=== PATIENT | female | born 1985 | race Asian ===

== ENCOUNTER 2020-12-31 17:54 | Observation (INO) ==
--- NOTE | 2020-12-31 19:36 | Emergency Department Note ---
Impression & Plan Abdominal pain, Nausea ED Provider Note NAME: OWEN WESTBROOK AGE: 35 SEX: F : 1985 ARRIVES VIA: Walk-In INFORMANT: Patient, ED PROVIDER(S): Gurwinder Ledesma MD Chief Complaint: Abdominal pain HPI: Patient does present with lower abdominal pain. She describes it as achy and diffuse. She has not taken anything for it at home. Patient denies any fevers or chills. Patient is currently on her menstrual period. Patient denies any recent travel. She has had associated nausea but without vomiting. The pat ient has had recent bowel movements. No blood in the urine or stool. The patient denies any dysuria. Patient initially thought that her discomfort was secondary to something she may have eaten and was seen at [facility]. Patient states that pain is not much improved. ROS: See HPI for pertinent positives and negatives. A total of 10 systems were reviewed and otherwise negative. Past medical history: See below Surgical history: See below Social history: See below Physical Exam: GENERAL: Mildly uncomfortable in appearance, wearing glasses and a mask NAD, non-toxic. EYE EXAM: Normal conjunctiva. PERRL, no anisocoria and EOM's grossly intact w/o pain. NECK: Supple, no nuchal rigidity, no adenopathy, non-tender. No signs of meningismus. LUNGS: Clear to auscultation. Normal chest wall mechanics. HEART: NSR, no MRG. ABDOMEN: Abdomen soft, diffuse lower abdominal discomfort, negative obturators and psoas, normo-active bowel sounds, no masses, no rebound or guarding. BACK: No CVA TTP. SKIN: No rashes and no bruising. UPPER EXTREMITIES: Upper extremities are grossly normal. LOWER EXTREMITIES: Grossly normal, no edema. NEURO EXAM: A&O x3, cranial nerves II-XII grossly intact, normal speech, moves all 4 extremities on command w/o issue. Differential diagnoses: Appendicitis, ovarian cyst, ovarian torsion, ectopic , TOA, PID, infections, diverticulitis, UTI, obstruction, mesenteric ischemia, aortic pathology, inflammatory bowel disease, renal colic, PUD, pancreatitis, biliary pathology, hernia, volvulus, constipation, as well as other pathologies. Course: Patient was seen and evaluated the bedside. Full history physical exam was performed. EKG: None Imaging Studies: See below Cardiac monitoring: An order was placed for continuous cardiac monitoring. The monitor shows a rate of 82 with sinus rhythm. MDM: Patient was seen due to concern for lower abdominal discomfort currently on menstrual period. The patient did have blood work completed and was treated s ymptomatically. Upon reassessment the patient did have improvement with her pain but still had some mild nausea. The patient blood work did show a white count of 15 in light of the patient's recent menstrual period believe a CT is warranted to rule out the possibility alternative intra-abdominal pathology. The patient CT did show the possibility of appendicitis but it was recommended for repeat CAT scan to be completed with both IV and oral contrast. Patient was ordered additional medications. I did convey this to the patient and she understood. I did signout the patient to Dr. Shetty pending the repeat CAT scan. Past Med/Surg History Medical History (Updated 01/03/21 @ 09:26 by Gurwinder Ledesma MD) No pertinent past medical history Surgical History (Updated 01/03/21 @ 09:26 by Gurwinder Ledesma MD) No pertinent past surgical history Social History Smoking Status: Never smoker Second Hand Exposure: No; Hx Alcohol Use: No Hx Substance Use: No Preferred Language: German Communication Ability: Effective Beliefs That Will Affect Care: None Current Living Situation: Alone Feels Safe at Home: Yes Assistive Devices: Glasses Allergies Allergies Allergy/AdvReac Type Severity Reaction Status Date / Time latex Allergy Rash Verified 01/01/21 05:34 naproxen Allergy MOUTH Verified 12/31/20 21:34 EDEMA, DIFFICULTY BREATHING nickel Allergy Rash Verified 01/01/21 05:34 Home Meds Home Medications Medication Instructions Recorded Confirmed acetaminophen [Tylenol Extra 1,000 mg PO Q6H PRN 12/31/20 12/31/20 Strength] bupropion HCl 150 mg PO DAILY 12/31/20 12/31/20 ibuprofen 600 mg PO Q8H PRN 12/31/20 12/31/20 sertraline 100 mg PO DAILY 12/31/20 12/31/20 Previous Rx's Medication Instructions Recorded oxycodone 5 - 10 mg PO .[id number] PRN #10 tab 01/01/21 Results & Data (ED) Vital Signs Vital Signs - 24 hr 12/31/20 17:58 Temperature 36.5 C Temperature Source Temporal Artery Scan Pulse Rate 77 Respiratory Rate 18 Blood Pressure 97/74 L Blood Pressure Mean 81 Pulse Oximetry 97 Sepsis Recent Fever Within 48 Hours No Sepsis New/Unexplained Change in Mental Status No Sepsis Action Taken by Nursing No Action Required Home Medications Current Medication List: was personally reviewed by me Laboratory Data Attestation: I reviewed the patient's lab results. Result diagrams: 12/31/20 19:36 12/31/20 19:36 Lab Results 12/31/20 12/31/20 12/31/20 Range/Units 19:36 19:36 19:36 WBC 15.47 H (4.8-10.8) K/uL RBC 4.18 L (4.2-5.4) M/uL Hgb 11.3 L (12.0-16.0) g/dL Hct 34.1 L (37-47) % MCV 81.6 (80-100) fL MCH 27.0 (25-34) pg MCHC 33.1 (32-36) g/dL RDW Std Deviation 49.5 H (36.4-46.3) fL RDW Coeff of Jud 16.3 H (11.5-14.5) % Plt Count 274 (130-400) K/uL MPV 10.8 H (7.4-10.4) fL Immature Gran % (Auto) 0.2 % Neut % (Auto) 86.7 % Lymph % (Auto) 8.2 % Yancey % (Auto) 3.8 % Eos % (Auto) 1.0 % Baso % (Auto) 0.1 % Neut # (Auto) 13.41 H (1.4-6.5) K/uL Lymph # (Auto) 1.27 (1.2-3.4) K/uL [place]y # (Auto) 0.59 (0.11-0.59) K/uL Eos # (Auto) 0.15 (0-0.5) K/uL Baso # (Auto) 0.02 (0-0.2) K/uL Immature Gran # (Auto) 0.03 H (0.00-0.02) K/uL PT 9.7 (9.0-12.0) Seconds INR 1.0 (0.9-1.1) Sodium 141 (136-145) mmol/L Potassium 3.5 (3.5-5.1) mmol/L Chloride 110 H (98-107) mmol/L Carbon Dioxide 27 (21-32) mmol/L Anion Gap 4.0 (3-11) BUN 12 (7-18) mg/dl Creatinine 0.64 (0.6-1.2) mg/dl Est Cr Clr Drug Dosing Not Reportable Est GFR ( Amer) 135.9 Est GFR (Non-Af Amer) 117.2 BUN/Creatinine Ratio 18.9 (10-20) Glucose 124 H (70-99) mg/dl Calcium 8.7 (8.5-10.1) mg/dl Total Bilirubin 0.3 (0.2-1) mg/dl AST 11 L (15-37) U/L ALT 35 (12-78) U/L Alkaline Phosphatase 56 (45-117) U/L Total Protein 7.2 (6.4-8.2) gm/dl Albumin 3.8 (3.4-5.0) gm/dl Globulin 3.4 (2.5-4.0) gm/dl Albumin/Globulin Ratio 1.1 (0.9-2) Lipase 76 (73-393) U/L Urine Color Urine Appearance (Clear) Urine pH (4.5-7.5) Ur Specific [place] (1.000-1.030) Urine Protein (Negative) Urine Glucose (UA) (Negative) Urine Ketones (Negative) Urine Blood (Negative) Urine Nitrite (Negative) Urine Bilirubin (Negative) Urine Urobilinogen (Negative) Ur Leukocyte Esterase (Negative) Urine WBC (Auto) (0-5) /hpf Urine RBC (Auto) (0-4) /hpf U Hyaline Cast (Auto) (0-5) /lpf U Epithel Cells (Auto) (0-5) /lpf Urine Bacteria (Auto) (Negative) Urine Test (Negative) COVID-19 Eval Order SARS-CoV-2 (PCR) (Negative) Influenza Type A (PCR) (Neg) Influenza Type B (PCR) (Neg) RSV (RT-PCR) (Neg) 12/31/20 12/31/20 01/01/21 Range/Units Unknown Unknown 01:00 WBC (4.8-10.8) K/uL RBC (4.2-5.4) M/uL Hgb (12.0-16.0) g/dL Hct (37-47) % MCV (80-100) fL MCH (25-34) pg MCHC (32-36) g/dL RDW Std Deviation (36.4-46.3) fL RDW Coeff of Jud (11.5-14.5) % Plt Count (130-400) K/uL MPV (7.4-10.4) fL Immature Gran % (Auto) % Neut % (Auto) % Lymph % (Auto) % Yancey % (Auto) % Eos % (Auto) % Baso % (Auto) % Neut # (Auto) (1.4-6.5) K/uL Lymph # (Auto) (1.2-3.4) K/uL [place] # (Auto) (0.11-0.59) K/uL Eos # (Auto) (0-0.5) K/uL Baso # (Auto) (0-0.2) K/uL Immature Gran # (Auto) (0.00-0.02) K/uL PT (9.0-12.0) Seconds INR (0.9-1.1) Sodium (136-145) mmol/L Potassium (3.5-5.1) mmol/L Chloride (98-107) mmol/L Carbon Dioxide (21-32) mmol/L Anion Gap (3-11) BUN (7-18) mg/dl Creatinine (0.6-1.2) mg/dl Est Cr Clr Drug Dosing Est GFR ( Amer) Est GFR (Non-Af Amer) BUN/Creatinine Ratio (10-20) Glucose (70-99) mg/dl Calcium (8.5-10.1) mg/dl Total Bilirubin (0.2-1) mg/dl AST (15-37) U/L ALT (12-78) U/L Alkaline Phosphatase (45-117) U/L Total Protein (6.4-8.2) gm/dl Albumin (3.4-5.0) gm/dl Globulin (2.5-4.0) gm/dl Albumin/Globulin Ratio (0.9-2) Lipase (73-393) U/L Urine Color Red Urine Appearance Cloudy A (Clear) Urine pH 5.5 (4.5-7.5) Ur Specific [place] 1.024 (1.000-1.030) Urine Protein 1+ H (Negative) Urine Glucose (UA) Negative (Negative) Urine Ketones Negative (Negative) Urine Blood 3+ H (Negative) Urine Nitrite Negative (Negative) Urine Bilirubin Negative (Negative) Urine Urobilinogen Negative (Negative) Ur Leukocyte Esterase 1+ H (Negative) Urine WBC (Auto) 5-10 H (0-5) /hpf Urine RBC (Auto) >30 H (0-4) /hpf U Hyaline Cast (Auto) 0 (0-5) /lpf U Epithel Cells (Auto) 10-20 H (0-5) /lpf Urine Bacteria (Auto) Negative (Negative) Urine Test Negative (Negative) COVID-[address] Eval [address] CovFluRsv at [facility] SARS-CoV-2 (PCR) (Negative) Influenza Type A (PCR) (Neg) Influenza Type B (PCR) (Neg) RSV (RT-PCR) (Neg) 01/01/21 Range/Units 01:00 WBC (4.8-10.8) K/uL RBC (4.2-5.4) M/uL Hgb (12.0-16.0) g/dL Hct (37-47) % MCV (80-100) fL MCH (25-34) pg MCHC (32-36) g/dL RDW Std Deviation (36.4-46.3) fL RDW Coeff of Jud (11.5-14.5) % Plt Count (130-400) K/uL MPV (7.4-10.4) fL Immature Gran % (Auto) % Neut % (Auto) % Lymph % (Auto) % [place] % (Auto) % Eos % (Auto) % Baso % (Auto) % Neut # (Auto) (1.4-6.5) K/uL Lymph # (Auto) (1.2-3.4) K/uL [place] # (Auto) (0.11-0.59) K/uL Eos # (Auto) (0-0.5) K/uL Baso # (Auto) (0-0.2) K/uL Immature Gran # (Auto) (0.00-0.02) K/uL PT (9.0-12.0) Seconds INR (0.9-1.1) Sodium (136-145) mmol/L Potassium (3.5-5.1) mmol/L Chloride (98-107) mmol/L Carbon Dioxide (21-32) mmol/L Anion Gap (3-11) BUN (7-18) mg/dl Creatinine (0.6-1.2) mg/dl Est Cr Clr Drug Dosing Est GFR ( Amer) Est GFR (Non-Af Amer) BUN/Creatinine Ratio (10-20) Glucose (70-99) mg/dl Calcium (8.5-10.1) mg/dl Total Bilirubin (0.2-1) mg/dl AST (15-37) U/L ALT (12-78) U/L Alkaline Phosphatase (45-117) U/L Total Protein (6.4-8.2) gm/dl Albumin (3.4-5.0) gm/dl Globulin (2.5-4.0) gm/dl Albumin/Globulin Ratio (0.9-2) Lipase (73-393) U/L Urine Color Urine Appearance (Clear) Urine pH (4.5-7.5) Ur Specific [place] (1.000-1.030) Urine Protein (Negative) Urine Glucose (UA) (Negative) Urine Ketones (Negative) Urine Blood (Negative) Urine Nitrite (Negative) Urine Bilirubin (Negative) Urine Urobilinogen (Negative) Ur Leukocyte Esterase (Negative) Urine WBC (Auto) (0-5) /hpf Urine RBC (Auto) (0-4) /hpf U Hyaline Cast (Auto) (0-5) /lpf U Epithel Cells (Auto) (0-5) /lpf Urine Bacteria (Auto) (Negative) Urine Test (Negative) COVID-19 Eval Order SARS-CoV-2 (PCR) NEGATIVE (Negative) Influenza Type A (PCR) Negative (Neg) Influenza Type B (PCR) Negative (Neg) RSV (RT-PCR) Negative (Neg) Administered Medications Discontinued Medications Bupivacaine HCl/Epinephrine Bitart (Bupivacaine/Epinephrine 0.5% Mpf 1:200,000 30 Ml Vial) Confirm Administered Dose 30 ml .ROUTE .[employer]-MED ONE Stop: 01/01/21 02:08 Last Admin: 01/01/21 03:28 Dose: 30 ml Documented by: [id number] Bupropion HCl (Bupropion Xl 150 Mg Tabcr) 150 mg PO DAILY SANDY Stop: 01/31/21 08:59 Last Admin: 01/01/21 09:18 Dose: 150 mg Documented by: [id number] Sodium Chloride (Nss 1000ml) 1,000 mls @ 999 mls/hr IV .Q1H1M STA Stop: 12/31/20 20:48 Last Infusion: 12/31/20 22:15 Dose: 0 mls/hr Documented by: [id number] Admin: 12/31/20 20:13 Dose: 999 mls/hr Documented by: [id number] Sodium Chloride (Nss 1000ml) 1,000 mls @ 999 mls/hr IV .Q1H1M ONE Stop: 12/31/20 23:29 Last Infusion: 12/31/20 23:33 Dose: 0 mls/hr Documented by: [id number] Admin: 12/31/20 22:32 Dose: 999 mls/hr Documented by: [id number] Cefoxitin Sodium (Mefoxin) 2,000 mg in 60 mls @ 100 mls/hr IV NOW STA Stop: 01/01/21 01:44 Last Infusion: 01/01/21 05:14 Dose: 0 mls/hr Documented by: [id number] Admin: 01/01/21 01:42 Dose: 100 mls/hr Documented by: [id number] Lactated Ringer's (Lr) 1,000 mls @ 75 mls/hr IV .[id number] SANDY Stop: 01/31/21 01:14 Last Infusion: 01/01/21 14:33 Dose: 0 mls/hr Documented by: [id number] Infusion: 01/01/21 08:01 Dose: 75 mls/hr Documented by: [id number] Infusion: 01/01/21 07:43 Dose: 0 mls/hr Documented by: [id number] Admin: 01/01/21 01:43 Dose: 75 mls/hr Documented by: [id number] Acetaminophen (Ofirmev) 1,000 mg in 100 mls @ 400 mls/hr IV Q8H SANDY Stop: 01/04/21 07:59 Last Infusion: 01/01/21 16:25 Dose: 0 mls/hr Documented by: [id number] Admin: 01/01/21 16:01 Dose: 400 mls/hr Documented by: [id number] Infusion: 01/01/21 08:01 Dose: 0 mls/hr Documented by: [id number] Admin: 01/01/21 07:42 Dose: 400 mls/hr Documented by: [id number] Ioversol (Ioversol 100ml) 86 ml IV ONCE ONE Stop: 12/31/20 20:23 Last Admin: 12/31/20 20:23 Dose: 86 ml Documented by: [id number] Morphine Sulfate (Morphine Sulfate 4 Mg/Ml 1 Ml Carp\Vial) 4 mg IV NOW STA Stop: 12/31/20 19:49 Last Admin: 12/31/20 20:13 Dose: 4 mg Documented by: [id number] Morphine Sulfate (Morphine Sulfate 4 Mg/Ml 1 Ml Carp\Vial) 4 mg IV ONE PRN PRN Reason: Pain Stop: 01/14/21 22:28 Last Admin: 12/31/20 23:04 Dose: 4 mg Documented by: [id number] Ondansetron HCl (Ondansetron Inj 2 Mg/Ml 2 Ml Vial) 4 mg IV NOW STA Stop: 12/31/20 19:49 Last Admin: 12/31/20 20:13 Dose: 4 mg Documented by: [id number] Ondansetron HCl (Ondansetron Inj 2 Mg/Ml 2 Ml Vial) 4 mg IV NOW STA Stop: 12/31/20 21:10 Last Admin: 12/31/20 21:24 Dose: 4 mg Documented by: [id number] Oxycodone HCl (Oxycodone Hcl Soln 5 Mg/5 Ml Udc) 5 mg PO Q6H PRN PRN Reason: Pain Stop: 01/15/21 05:45 Last Admin: 01/01/21 14:51 Dose: 5 mg Documented by: [id number] Sertraline HCl (Sertraline Hcl 100 Mg Tablet) 100 mg PO DAILY SANDY Stop: 01/31/21 08:59 Last Admin: 01/01/21 09:18 Dose: 100 mg Documented by: [id number] Sterile Water (Water, Sterile For Inj 10 Ml Vial) Confirm Administered Dose 10 ml .ROUTE .STK-MED ONE Stop: 01/01/21 01:40 Last Admin: 01/01/21 01:43 Dose: 10 ml Documented by: [id number] Discharge Plan Visit Data Chief Complaint: Abdominal Pain Stated Complaint: ABDOMINAL PAIN ED Provider: Gurwinder Ledesma Discharge Problem: Abdominal pain, Nausea Patient Disposition: Admitted As Inpatient Discharge Instructions Interventions: ED Discharge Assessment Last Done: 01/01/21 02:01 Discharge Problem: Abdominal pain Qualifiers: Abdominal location: lower abdomen, unspecified Qualified Code(s): R10.30 - Lower abdominal pain, unspecified
[2020-12-31] MEDS ORDERED: SODIUM CHLORIDE 0.9% 1000ML 1,000 ML IV STA (19:48)
[2020-12-31] MEDS ORDERED: ONDANSETRON INJ 2 MG/ML 2 ML VIAL IV STA ×2 (19:48→21:09)
[2020-12-31] MEDS ORDERED: MoRPHine SULFATE 4 MG/ML 1 ML CARP\\VIAL IV STA (19:48)
[2020-12-31 19:58] LABS: Basophils # (auto) 0.02 K/uL (0-0.2); Basophils % (auto) 0.1 %; Eosinophils # (auto) 0.15 K/uL (0-0.5); Hematocrit (blood only) 34.1 % (37-47); Hemoglobin 11.3 g/dL (12.0-16.0); Immature Granulocytes # (auto) 0.03 K/uL (0.00-0.02); Immature Granulocytes % (auto) 0.2 %; Lymphocytes # (auto) 1.27 K/uL (1.2-3.4); Lymphocytes % (auto) 8.2 %; Mean Corpuscular Hgb Conc 33.1 g/dL (32-36); Mean Corpuscular Volume 81.6 fL (80-100); Mean Platelet Volume 10.8 fL (7.4-10.4); Monocytes # (auto) 0.59 K/uL (0.11-0.59); Monocytes % (auto) 3.8 %; Neutrophils # (auto) 13.41 K/uL (1.4-6.5); Neutrophils % (auto) 86.7 %; Platelet Count 274 K/uL (130-400); RDW Coefficient of Variation 16.3 % (11.5-14.5); RDW Standard Deviation 49.5 fL (36.4-46.3); Red Blood Count 4.18 M/uL (4.2-5.4); White Blood Count 15.47 K/uL (4.8-10.8)
[2020-12-31 20:08] LABS: Alanine Aminotransferase 35 U/L (12-78); Albumin Level 3.8 gm/dl (3.4-5.0); Aspartate Aminotransferase 11 U/L (15-37); BUN Creatinine Ratio 18.9 (10-20); Blood Urea Nitrogen 12 mg/dl (7-18); Calcium 8.7 mg/dl (8.5-10.1); Carbon Dioxide 27 mmol/L (21-32); Chloride 110 mmol/L (98-107); Est GFR (African American) 135.9; Est GFR (Non-African American) 117.2; Glucose 124 mg/dl (70-99); Lipase 76 U/L (73-393); Potassium 3.5 mmol/L (3.5-5.1); Sodium 141 mmol/L (136-145)
[2020-12-31 20:11] LABS: Albumin Globulin Ratio 1.1 (0.9-2); Alkaline Phosphatase 56 U/L (45-117); Bilirubin,Total 0.3 mg/dl (0.2-1); Globulin 3.4 gm/dl (2.5-4.0); Prothrombin Time 9.7 Seconds (9.0-12.0); Total Protein 7.2 gm/dl (6.4-8.2)
[2020-12-31] MEDS ORDERED: OPTIRAY 320 100ml IV ONE (20:22)
[2020-12-31 20:32] LABS: Appearance Urine Cloudy (Clear); Bacteria Urine Automated Negative (Negative); Bilirubin Urine Negative (Negative); Blood Urine 3+ (Negative); Cast Urine Automated 0 /lpf (0-5); Color Urine Red; Glucose Urine UA Negative (Negative); Ketones Urine Negative (Negative); Leukocyte Esterase Urine 1+ (Negative); Nitrite Urine Negative (Negative); Protein Urine 1+ (Negative); RBC Urine Automated >30 /hpf (0-4); Specific Gravity Urine 1.024 (1.000-1.030); Urobilinogen Urine Negative (Negative); pH Urine 5.5 (4.5-7.5)
--- NOTE | 2020-12-31 20:40 | CT Scan Report ---
ABDOMEN AND PELVIS CT WITH IV CONTRAST CT DOSE: 677.70 mGy.cm HISTORY: Diffuse abdominal pain. Lower abdominal pain. TECHNIQUE: Multiaxial CT images of the abdomen and pelvis were performed following the use of intrave nous contrast. A dose lowering technique was utilized adhering to the principles of ALARA. COMPARISON STUDY: None. FINDINGS: The lung bases are clear. No pneumoperitoneum. No pneumatosis. No fractures within the visu alized osseous structures. Hepatic steatosis. The gallbladder, spleen, adrenal glands, pancreas, and kidneys unremarkable. No retroperitoneal lymphadenopathy. Normal caliber abdominal aorta. The main po rtal vein is patent. The bladder is decompressed but appears unremarkable. The uterus is within hoang l limits. The right ovary is obscured by the small amount of pelvic free fluid. Probable 2.3 cm cyst within the right ovary. No bowel wall thickening or obstruction. The proximal to mid appendix is with in normal limits. However, there is a lobular appearance to the tip of the appendix which may also be partially obscured by the pelvic free fluid. This is best seen on image 328 and measures 9 mm in thi ckness. No definite periappendiceal fat stranding. IMPRESSION: 1. The proximal to mid appendix is within normal limits. However, there is a lobular appearance to th e tip of the appendix which is not well visualized due to the adjacent pelvic free fluid. This measur es up to 9 mm in diameter. No definite periappendiceal fat stranding. Given history of lower abdomina l pain, repeat CT with intravenous and oral contrast is recommended to exclude the possibility of a d eveloping acute appendicitis. 2. Small amount of pelvic free fluid which may be physiologic/gynecologic in origin. The right kidney is slightly enlarged compared to the left and appears to contain a 2.3 cm cyst. Therefore, this may represent a recently ruptured ovarian cyst. 3. Hepatic steatosis. 4. No evidence for bowel obstruction. ACT 112: Negative or not required by law. Electronically signed by: Daniele Robison M.D. 12/31/2020 8:39 PM
[2020-12-31 20:42] LABS: Pregnancy Test, Urine Negative (Negative)
[2020-12-31] MEDS ORDERED: SODIUM CHLORIDE 0.9% 1000ML 1,000 ML IV ONE (22:29)
[2020-12-31] MEDS ORDERED: MoRPHine SULFATE 4 MG/ML 1 ML CARP\\VIAL IV PRN (22:29)
--- NOTE | 2021-01-01 01:02 | Emergency Department Note ---
ED Visit Note Patient was signed out to me awaiting a second CT scan of the abdomen pelvis. I did talk to the radiologist on the phone about the CT scan. He is highly suspicious for acute appendicitis. I did speak with the surgical service. They are going to see the patient for operative evaluation. .
[2021-01-01] MEDS ORDERED: cefOXitin 2,000 MG/60 ML BAG IV STA (01:09)
[2021-01-01] MEDS ORDERED: ONDANSETRON INJ 2 MG/ML 2 ML VIAL IV PRN ×2 (01:09→02:29)
[2021-01-01] MEDS ORDERED: MoRPHine SULFATE 2 MG/ML CARP IV PRN (01:09)
--- NOTE | 2021-01-01 01:09 | History & Physical Report ---
Date of Service January 01, 2021 Assessment & Plan (1) Acute appendicitis: Due to the patient's clinical history, laboratory findings, and imaging we are highly suspicious the patient has acute appendicitis. We will therefore proceed with a laparoscopic possible open appendectomy this evening. We will provide analgesics We will provide antiemetics We will administer antibiotics in the form of cefoxitin We will provide IV fluid for hydration We will keep patient n.p.o. until after surgery Additional recommendations were made based on operative findings as well as her clinical course as unfolds. History of Present Illness Chief Complaint: Abdominal pain Primary Care Provider: [facility] This is a 35-year-old female who notes that she has had several days of generalized abdominal pain. Patient says that she originally thought that this pain was food poisoning and she was seen at [facility] where she received some intravenous fluids and was sent home. Patient notes over the ensuing several days her pain has not gotten much better. She has had associated nausea vomiting and her began pain became quite severe so she presented to the emergency department today. Patient says that the pain was originally in a generalized fashion in her abdomen but has the most intensity now in the right lower quadrant. She denies any fevers, shakes, chills. She does not note any modifying factors or radiation of her pain. In the emergency department the patient did have labs and imaging which I dependently reviewed. She originally had a noncontrast CT scan of her abdomen where the patient was noted to have a mid and proximal appendix within normal limits however appendicitis could not be excluded as the tip was not well visualized. Patient ultimately had a follow-up CT scan of the abdomen with oral contrast and interpreting radiologist was suspicious for acute appendicitis. The patient did have labs including a CBC were white blood cell count was elevated at 15.4. Her hemoglobin hematocrit were 11.3 and 34.1. Platelet count was noted be within normal range. A chemistry profile showed her sodium, potassium, BUN, and creatinine were all within normal range. A urine test was noted be negative and a Covid test is pending. At the time of my interview the patient was resting comfortably in bed in no distress Allergies Allergy/AdvReac Type Severity Reaction Status Date / Time naproxen Allergy MOUTH Verified 12/31/20 21:34 EDEMA, DIFFICULTY BREATHING Home Medications Medication Instructions Recorded Confirmed Type acetaminophen [Tylenol Extra 1,000 mg PO Q6H PRN 12/31/20 12/31/20 History Strength] bupropion HCl 150 mg PO DAILY 12/31/20 12/31/20 History ibuprofen 600 mg PO Q8H PRN 12/31/20 12/31/20 History sertraline 100 mg PO DAILY 12/31/20 12/31/20 History Past Med/Surg History Social History Smoking Status: Never smoker Feels Safe at Home: Yes Review of Systems Constitutional: no fever Eyes: no diplopia Ear, Nose, Mouth, Throat: no ear pain Respiratory: no cough and no dyspnea Cardiovascular: no chest pain Gastrointestinal: + abdominal pain, + nausea and + vomiting Genitourinary: no dysuria Musculoskeletal: no back pain Integumentary: no rash Neurologic: no localized weakness Physical Exam Constitutional: well developed and well nourished; no acute distress Eyes: no conjunctival abnormality Wears glasses ENMT: Ears: no hearing impairment Neck: trachea midline Respiratory: normal respiratory effort, lungs clear to auscultation Cardiovascular: Rate/Rhythm: regular rate and regular rhythm Gastrointestinal (Abdomen): Abdomen is soft and nondistended. Bowel sounds are present. The patient did have pain with palpation most pronounced in the right lower quadrant. Musculoskeletal: No calf tenderness Skin: no rashes, warm and dry Neurologic: moves all extremities Psychiatric: A+Ox3, euthymic affect Results & Data Results & Data ([facility]) Vital Signs (Past 12 Hours) Vital Signs Temp Pulse Pulse Resp BP BP Pulse Ox 12/31/20 23:30 90 18 120/67 97 12/31/20 23:03 87 18 115/68 99 12/31/20 22:00 89 18 130/65 97 12/31/20 21:28 82 18 122/69 99 12/31/20 17:58 36.5 C 77 18 97/74 L 97 Supervising Physician Co-Signing Physician Notes I personally saw and evaluated the patient with Jevon Lopez PA-C and agree with the assessment and plan 35 yo female with acute appendicitis versus ruptured ovarian cyst -Her abdominal pain has an acute on chronic nature to it and exam has point TTP in RLQ -CT shows evidence of inflammation in RLQ -Discussion with radiology favors appendicitis over a SUPERINTENDENT STATIONS etiology -Will proceed with laparoscopic appendectomy, possible open -Consent obtained, risks discussed including bleeding, infection, leak, perforation PG Care Time/CCT Total # of Minutes Spent Total Time Spent with Patient: Total time spent is greater than 50% in coordination of care (as documented) at patient's floor/unit and/or counseling patient: Coding Level of Care Code 00066 OBS Care - Level 3 Diagnoses Acute appendicitis K35.80
[2021-01-01] MEDS ORDERED: LACTATED RINGER'S 1,000 ML IV SCH (01:15)
--- NOTE | 2021-01-01 01:15 | Anesthesiology Consultation ---
Date of Service January 01, 2021 Assessment & Plan (1) Encounter for pre-operative examination: Chart Review Chart Review: Acceptable Risk for Surgery and Patient NOT seen in Pre Admission Testing Consults Requested none History Surgery Operation Date: 01/01/21 02:30 Proposed Procedures p Laparoscopic Appendectomy - Tyler Del Cid DO Height/Weight Weight: 89.1 kg Allergies Allergy/AdvReac Type Severity Reaction Status Date / Time naproxen Allergy MOUTH Verified 12/31/20 21:34 EDEMA, DIFFICULTY BREATHING Medications Home Medications Medication Instructions Recorded Confirmed Last Taken acetaminophen [Tylenol Extra 1,000 mg PO Q6H PRN 12/31/20 12/31/20 12/31/20 17:15 Strength] bupropion HCl 150 mg PO DAILY 12/31/20 12/31/20 Unknown ibuprofen 600 mg PO Q8H PRN 12/31/20 12/31/20 12/31/20 09:00 sertraline 100 mg PO DAILY 12/31/20 12/31/20 Unknown Active Medications Generic Name Dose Route Start Last Admin Trade Name Jesusq PRN Reason Stop Dose Admin Morphine Sulfate 4 mg 12/31/20 22:29 12/31/20 23:04 Morphine Sulfate 4 Mg/Ml 1 Ml Carp\Vial IV 01/14/21 22:28 4 mg ONE PRN Administration Pain Social History Smoking Status: Never smoker Physical Exam Vital Signs Last Vital Signs Temp 36.5 C 12/31/20 17:58 Pulse 90 12/31/20 23:30 Resp 18 12/31/20 23:30 BP 120/67 12/31/20 23:30 Pulse Ox 97 12/31/20 23:30 Testing Laboratory Results 12/31/20 19:36 12/31/20 19:36 PT 9.7 Seconds (9.0-12.0) 12/31/20 19:36 INR 1.0 (0.9-1.1) 12/31/20 19:36 Urine Color Red 12/31/20 Unknown Urine Appearance Cloudy (Clear) A 12/31/20 Unknown Urine pH 5.5 (4.5-7.5) 12/31/20 Unknown Ur Specific [place] 1.024 (1.000-1.030) 12/31/20 Unknown Urine Protein 1+ (Negative) H 12/31/20 Unknown Urine Glucose (UA) Negative (Negative) 12/31/20 Unknown Urine Ketones Negative (Negative) 12/31/20 Unknown Urine Nitrite Negative (Negative) 12/31/20 Unknown Ur Leukocyte Esterase 1+ (Negative) H 12/31/20 Unknown Urine WBC (Auto) 5-10 /hpf (0-5) H 12/31/20 Unknown Urine RBC (Auto) >30 /hpf (0-4) H 12/31/20 Unknown U Hyaline Cast (Auto) 0 /lpf (0-5) 12/31/20 Unknown U Epithel Cells (Auto) 10-20 /lpf (0-5) H 12/31/20 Unknown Urine Bacteria (Auto) Negative (Negative) 12/31/20 Unknown Urine Test Negative (Negative) 12/31/20 Unknown 12/31/20 Unknown Urine Test Negative
[2021-01-01] MEDS ORDERED: MIDAZOLAM HCL 1 MG/ML 2ML VIAL ONE (01:36)
[2021-01-01] MEDS ORDERED: PROPOFOL IV EMULSION 10 MG/ML 20 ML VIAL IV ONE (01:36)
[2021-01-01] MEDS ORDERED: LIDOCAINE HCL 2% 2 ML VIAL/AMP(20MG/ML) INFIL ONE (01:36)
[2021-01-01] MEDS ORDERED: ONDANSETRON INJ 2 MG/ML 2 ML VIAL ONE ×2 (01:36→03:11)
[2021-01-01] MEDS ORDERED: SUCCINYLCHOLINE CHLORIDE 20 MG/ML 10 ML VIAL IV ONE (01:36)
[2021-01-01] MEDS ORDERED: fentaNYL citrate 100 MCG/2 ML VIAL ONE (01:36)
[2021-01-01] MEDS ORDERED: ROCURONIUM BROMIDE 10 MG/ML 5 ML VIAL IV ONE (01:36)
[2021-01-01] MEDS ORDERED: DEXAMETHASONE SOD INJ 4 MG/ML VIAL ONE (01:36)
[2021-01-01] MEDS ORDERED: WATER, STERILE FOR INJ 10 ML VIAL ONE (01:39)
[2021-01-01] MEDS ORDERED: NEOSTIGMINE METHYLSULFATE 5 MG/5 ML SYR ONE (01:42)
[2021-01-01] MEDS ORDERED: GLYCOPYRROLATE 0.2 MG/ML VIAL ONE (01:42)
[2021-01-01 01:52] LABS: Influenza A virus by PCR Negative (Neg); Influenza B virus by PCR Negative (Neg); RSV by PCR Negative (Neg); SARS CoV2 RNA(COVID-19) InHosp NEGATIVE (Negative)
[2021-01-01] MEDS ORDERED: BUPIVACAINE/EPINEPHRINE 0.5% MPF 1:200,000 30 ML VIAL ONE (02:07)
[2021-01-01] MEDS ORDERED: fentaNYL citrate 100 MCG/2 ML VIAL IV PRN (02:29)
[2021-01-01] MEDS ORDERED: ePHEDrine sulfate 50 MG/ML AMP IV PRN (02:29)
[2021-01-01] MEDS ORDERED: PROMETHAZINE HCL 12.5 MG in SODIUM CHLORIDE 0.9% 50 ML IV PRN (02:29)
[2021-01-01] MEDS ORDERED: ATROPINE SULFATE 0.1 MG/ML 10ML SYR IV PRN (02:29)
--- NOTE | 2021-01-01 03:36 | Post Operative Brief Note ---
PG Immediate Post Op with CF Date of Surgery January 01, 2021 Pre & Post Diagnosis Operation Date: 01/01/21 02:30 Pre-Op Diagnosis: Acute Appendicitis Post-Op Diagnosis: Acute Appendicitis without perforation Right ruptured hemorrhagic ovarian cyst I identified the patient and participated in the time-out.: Yes Procedure Operation Date: 01/01/21 02:30 Actual Procedures p Laparoscopic Appendectomy(Not Applicable) - Tyler Del Cid DO Surgeon Tyler Del Cid DO Manager Administration Jevon Lopez PA-C Estimated Blood Loss 5 Findings See Below Dilated, thickened distal appendix and mesoappendix consistent with acute appendicitis Small pelvic hematoma, right ovarian hemorrhagic cyst Specimens Specimen Description: a. appendix Drains Adams Catheter Anesthesia Type General Complications none Disposition Disposition: Recovery Room
--- NOTE | 2021-01-01 03:40 | Operative Report ---
PG Post Operative Report Pre & Post Diagnosis Operation Date: 01/01/21 02:30 Pre-Op Diagnosis: Acute Appendicitis Post-Op Diagnosis: Acute Appendicitis Right ruptured hemorrhagic ovarian cyst I identified the patient and participated in the time-out.: Yes Procedure Operation Date: 01/01/21 02:30 Actual Procedures p Laparoscopic Appendectomy(Not Applicable) - Tyler Del Cid DO Surgeon Tyler Del Cid DO Metal Fabricator Apprentice Jevon Lopez PA-C Estimated Blood Loss 5 Findings See Below Dilated, thickened distal appendix and mesoappendix consistent with acute appendicitis Small pelvic hematoma, right ovarian hemorrhagic cyst Specimens Appendix to pathology Drains None Anesthesia Type General Complications none Disposition Disposition: Recovery Room Indications [address] findings concerning for acute appendicitis versus right ovarian hemorrhagic cyst Description of Procedure The patient was brought to the OR and placed in the supine position and SCD's placed. At this time she underwent general endotracheal anesthesia without incident. At this time a Adams catheter was placed under sterile conditions. Her abdomen was prepped and draped in the usual sterile fashion. She was given appropriate pre-operative antibiotics. A timeout was called, the procedure was verified as Laparoscopic appendectomy, possible open. Surgical, anesthesia and nursing teams agreed and the procedure was begun. After injection of 0.25% Marcaine with epinephrine, a supraumbilical incision was made using a #11 blade scalpel and carried down to the fascia with a hemostat. The abdomen was then elevated with towel clamps and entered using the Veress needle confirming position using the saline drop test. Pneumoperitoneum was established and 5mm trocar was placed. Laparoscope was introduced. No injury was seen from our entrance to the abdomen. At this time a 5mm suprapubic port and 12mm LLQ port were placed under direct visualization. The abdomen was inspected and blood clot was evident in the pelvis. This was suctioned and there appeared to be a ruptured right ovarian hemorrhagic cyst. The patient was placed in Trendelenburg and rotated to the left. At this time the appendix was visualized and the tip was freed and elevated toward the abdominal wall. The distal third of the appendix appeared inflamed, dilated and edematous. The mesoappendix was also thickened and edematous. A window was created in the mesoappendix at the base of the appendix. A 45mm purple load stapler was then fired across the base of the appendix which appeared healthy. The mesoappendix was then taken using Harmonic device. The appendix was then placed in an Endocatch bag and removed through the LLQ port site. Staple line was inspected and was intact. Hemostasis was complete. The 12 mm port was then closed at the fascial level using a 0 Vicryl suture using the suture passer. All ports were removed under direct visualization and no bleeding was noted. The abdomen was desufflated and the skin was closed using 4-0 Monocryl in a subcuticular fashion. Sterile dressings were applied. Adams catheter was removed. The patient was then awakened from anesthesia having remained stable throughout the entire case and transported to PACU. All needle and sponge counts were correct x 2. The physician's temporary administrative assistant was present and scrubbed for the entire case. He was necessary for positioning, prepping and draping the patient, driving the laparoscope, retraction and exposure, closure of the incisions and placement of the dressings. I attest to the content of the Intraoperative Record and any orders documented therein. Any exceptions are noted below.
--- NOTE | 2021-01-01 04:36 | Anesthesiology Progress Note ---
Date of Service January 01, 2021 Anesthesia Post Procedure Vital Signs Vital Signs: Temp Pulse Pulse Resp BP BP Pulse Ox 01/01/21 04:29 95 H 18 125/76 97 01/01/21 04:24 90 16 131/67 99 01/01/21 04:15 36.8 C 92 H 16 121/46 L 95 01/01/21 04:05 36.5 C 91 H 20 121/66 97 01/01/21 03:57 36.3 C L 91 H 18 147/56 H 94 01/01/21 01:45 95 H 18 123/73 96 12/31/20 23:30 90 18 120/67 97 12/31/20 23:03 87 18 115/68 99 12/31/20 22:00 89 18 130/65 97 12/31/20 21:28 82 18 122/69 99 12/31/20 17:58 36.5 C 77 18 97/74 L 97 Pain Intensity Bilateral Abdomen: Pain Intensity: 3 Transfer of Care Handoff Completed per policy Notes Mental Status: alert / awake / arousable and participated in evaluation Patient Amnestic to Procedure: Yes Nausea / Vomiting: adequately controlled Pain: adequately controlled Airway Patency, RR, SpO2: stable & adequate BP & HR: stable & adequate Hydration State: stable & adequate Anesthetic Complications: no major complications apparent and Pt Satisfied with anesthetic care
[2021-01-01] MEDS ORDERED: oxyCODONE HCL SOLN 5 MG/5 ML UDC PO PRN (05:46)
[2021-01-01] MEDS: ACETAMINOPHEN 1,000 MG/100 ML VIAL IV SCH ×2 (07:42→16:01)
--- NOTE | 2021-01-01 08:12 | CT Scan Report ---
CT SCAN OF THE ABDOMEN AND PELVIS WITH IV CONTRAST CLINICAL HISTORY: Right lower quadrant abdominal pain. COMPARISON STUDY: Abdominal CT dated 12/31/2020. TECHNIQUE: Following the IV administration of 88 cc of Optiray 320, CT scan of the abdomen and pelvi s is performed from the lung bases to the proximal femora. Images are reviewed in the axial, sagittal , and coronal planes. IV contrast was administered without complication. Oral contrast was utilized. A dose lowering technique was utilized adhering to the principles of ALARA. CT DOSE: 776.67 mGy.cm FINDINGS: Lung bases: The heart is normal in size and without pericardial effusion. The lung bases are clear no ting minimal dependent atelectasis. Liver: The contrast-enhanced liver is enlarged, measuring 23.2 cm in length. The liver demonstrates d iffusely diminished attenuation consistent with hepatic steatosis. Fatty sparing is seen adjacent to the gallbladder fossa. There is no intrahepatic biliary ductal dilatation. The hepatic veins and port al veins are patent. Gallbladder: Unremarkable. Spleen: Normal in size and attenuation. Pancreas: Unremarkable. Adrenal glands: Unremarkable. Kidneys: The contrast enhanced kidneys are normal in size and without hydronephrosis. The kidneys enh ance and excrete symmetrically. Contrast fills the renal collecting systems and ureters. Abdominal vasculature: The abdominal aorta is normal in course and caliber. Bowel: There is no bowel obstruction. Enteric contrast reaches the transverse colon. The appendix is dilated measuring up to 1.2 cm diameter. The appendix is filled with fluid, and does not fill with e nteric contrast. Surrounding infiltration is identified and the appearance is consistent with acute a ppendicitis. Significant inflammatory change and trace fluid is seen in the right pelvis. No organize d/drainable fluid collection is identified to indicate abscess. Peritoneum: There is no intraperitoneal free air or abdominal ascites. There is a small fat-containin g umbilical hernia. Lymphadenopathy: None. Pelvic viscera: The bladder is normal as visualized, and is filled with excreted IV contrast. The cabazon ximena is normal as imaged. There are bilateral ovarian follicles. Inflammatory change and a small amoun t of free fluid are identified in the pelvis. Skeletal structures: No lytic or blastic lesions are seen. IMPRESSION: 1. Findings are consistent with acute appendicitis. 2. There is significant inflammatory change and a small volume of fluid in the right lower quadrant/p juventino. No organized/drainable fluid collection is seen to indicate abscess. 3. Hepatomegaly and hepatic steatosis. 4. Additional findings as above. ACT 112: Negative or not required by law. Electronically signed by: Riky Matos M.D. 01/01/2021 8:10 AM
--- NOTE | 2021-01-01 08:27 | Surgery Progress Note ---
Date of Service January 01, 2021 Assessment & Plan (1) Acute appendicitis: POD#0 laparoscopic appendectomy this AM Patient drowsy this AM, but easily awakens. She states she is feeling better and abdominal pain is improved Incisions c/d/i Will advance diet today as tolerates Encourage out of bed with ambulation Will check on later today for possible discharge Will need follow up in clinic with Dr. Del Cid in 1-2 weeks Admission and Anticipated Discharge Date Admission Date: January 01, 2021 Supervising Physician Co-Signing Physician Notes I personally saw and evaluated the patient with Samanta Villalba PA-C and agree with the assessment and plan 35 yo female POD#1 laparoscopic appendectomy with ruptured ovarian cyst -Advance diet as tolerated -D/C IVF -Encourage ambulation/IS -Will check back this afternoon for discharge home Subjective Patient resting in bed. Drowsy. Says abdominal pain improved. She has not tried eating/drinking much yet, but denies nausea/vomiting. Physical Exam Physical Exam: drowsy, but easily arousable and communicative Constitutional: no acute distress Respiratory: normal respiratory effort Gastrointestinal (Abdomen): Inspection/Auscultation: + abdominal surgical incision (c/d/i); abdomen not distended Percussion/Palpation: abdomen soft; abdomen nontender Results & Data ([facility]) Vital Signs (Past 12 Hours) Vital Signs Temp Pulse Resp BP BP Pulse Ox 01/01/21 08:00 37.2 C 94 H 16 113/69 95 01/01/21 07:05 37 C 94 H 16 127/77 96 01/01/21 06:02 36.7 C 102 H 16 127/78 93 01/01/21 05:46 36.7 C 102 H 16 127/78 93 01/01/21 05:35 36.7 C 103 H 18 124/80 96 01/01/21 04:37 90 18 122/73 98 01/01/21 04:29 95 H 18 125/76 97 01/01/21 04:24 90 16 131/67 99 01/01/21 04:15 36.8 C 92 H 16 121/46 L 95 01/01/21 04:05 36.5 C 91 H 20 121/66 97 01/01/21 03:57 36.3 C L 91 H 18 147/56 H 94 01/01/21 01:45 95 H 18 123/73 96 12/31/20 23:30 90 18 120/67 97 12/31/20 23:03 87 18 115/68 99 12/31/20 22:00 89 18 130/65 97 12/31/20 21:28 82 18 122/69 99 PG Care Time/CCT Total # of Minutes Spent Total Time Spent with Patient: Total time spent is greater than 50% in coordination of care (as documented) at patient's floor/unit and/or counseling patient: Coding Level of Care Code None Diagnoses Acute appendicitis K35.80
[2021-01-01] MEDS ORDERED: SERTRALINE HCL 100 MG TABLET PO SCH (09:00)
[2021-01-01] MEDS ORDERED: buPROPion XL 150 MG TABCR PO SCH (09:00)
--- NOTE | 2021-01-03 07:58 | Discharge Summary ---
Date of Service January 03, 2021 Admission HPI Per Admitting Provider This is a 35-year-old female who notes that she has had several days of generalized abdominal pain. Patient says that she originally thought that this pain was food poisoning and she was seen at [facility] where she received some intravenous fluids and was sent home. Patient notes over the ensuing several days her pain has not gotten much better. She has had associated nausea vomiting and her began pain became quite severe so she presented to the emergency department today. Patient says that the pain was originally in a generalized fashion in her abdomen but has the most intensity now in the right lower quadrant. She denies any fevers, shakes, chills. She does not note any modifying factors or radiation of her pain. In the emergency department the patient did have labs and imaging which I dependently reviewed. She originally had a noncontrast CT scan of her abdomen where the patient was noted to have a mid and proximal appendix within normal limits however appendicitis could not be excluded as the tip was not well visualized. Patient ultimately had a follow-up CT scan of the abdomen with oral contrast and interpreting radiologist was suspicious for acute appendicitis. The patient did have labs including a CBC were white blood cell count was elevated at 15.4. Her hemoglobin hematocrit were 11.3 and 34.1. Platelet count was noted be within normal range. A chemistry profile showed her sodium, potassium, BUN, and creatinine were all within normal range. A urine test was noted be negative and a Covid test is pending. At the time of my interview the patient was resting comfortably in bed in no distress Discharge Data Procedures Performed Operation Date: 01/01/21 02:30 Actual Procedures p Laparoscopic Appendectomy(Not Applicable) - Tyler Del iCd, DO Hospital Course (1) Acute appendicitis: Patient was admitted with acute appendicitis versus ruptured hemorrhagic ovarian cyst. She underwent laparoscopic appendectomy without issue. Post- operatively her diet was advanced as tolerated, she was afebrile and ready for discharge home on POD#1. Coding Level of Care Code D/C Day Management <30 mins Diagnoses Acute appendicitis K35.80
--- NOTE | 2021-01-03 15:27 | Discharge Summary (DS) ---
SHERWIN: Dr. Tyler Del Cid. ADMISSION DIAGNOSIS: Appendicitis. DISCHARGE DIAGNOSIS: Appendicitis. HOSPITAL COURSE: This patient presented to the Emergency Department on day of admission secondary to several days of generalized abdominal pain. She was seen and evaluated in the Emergency Department where she was to undergo a CT scan of the abdomen. Findings of the CT scan were concerning for acute appendicitis. On date of admission, Dr. Raines took the patient to the operating room where he performed a laparoscopic appendectomy. The patient was also found a right ruptured hemorrhagic ovarian cyst. The surgical procedure was without complications. The patient was able to tolerate diet advancement on postoperative day #1, she was ultimately discharged home in stable condition. She was provided with appropriate wound care, diet, and followup instructions and was deemed stable for discharge on this date.
== END 2021-01-01 19:29 | disposition home or self-care (01) ==
LOC: ED 17:54 → 3N 01-01 02:01 → OR 01-01 02:01